=== PATIENT | male | born 1960 ===

== ENCOUNTER → 2016-10-20 | Outpatient (CLI) | payer BC ==
[~2016-10-20] MED LIST: AMOX1TAB12 PO; DOXY100T41 PO; LISI1TAB10 PO; LSNP10T PO; OMEP20TA PO; SULF-221 PO; SULF1TAB35 PO; THIA100T12 PO
[2016-10-20 17:02] LABS: BILIRUBIN,URINE Negative (Negative); CLARITY,URINE Clear; COLOR,URINE Yellow; GLUCOSE, URINE (UA) Negative (Negative); LEUKOCYTE ESTERASE ,URINE Negative (Negative); UROBILINOGEN,URINE 0.2 mg/dL (0.2-1.0)
[2016-10-20 17:14] LABS: RBC,URINE 0-2 /HPF; URINE CENTRIFUGED VOLUME 12 mL
== END ==
LOC: LAB 16:52
PROVIDERS: ATTEND Nurse Practitioner Family
DX: I10 Essential (primary) hypertension (principal)
CPT/HCPCS: 81003; 81015

== ENCOUNTER → 2016-10-20 | Outpatient (REF) | payer BC ==
[2016-10-20 11:45] LABS: MEAN CORPUSCULAR HEMOGLOBIN 27.7 PG (26.0-34.0); MEAN PLATELET VOLUME 10.3 FL (6.0-9.5); PLATELET COUNT 236 10^3uL (150-450); WHITE BLOOD COUNT 7.84 10^3uL (4.0-11.0)
[2016-10-20 12:11] LABS: ANION GAP 20.2 MEQ/L (3-15)
[2016-10-20 12:20] LABS: MEAN CORPUSCULAR HGB CONC 36.2 g/dL (31.0-37.0); MEAN CORPUSCULAR VOLUME 77 FL (80-100)
[2016-10-20 12:24] LABS: BAND NEUTROPHILS % 0 % (0-6); EOSINOPHILS % 1 % (0-4); LYMPHOCYTES # 0.9 #; MONOCYTES # 1.1 #; MONOCYTES % 16 % (3-11); RBC MORPH NORMAL (NORMAL); SEGMENTED NEUTROPHILS % 70 % (51-67); TOTAL CELLS COUNTED 100
== END ==
LOC: LAB 11:18
PROVIDERS: ATTEND Nurse Practitioner Family
DX: I10 Essential (primary) hypertension (principal); R53.83 Other fatigue
CPT/HCPCS: 80048; 84443; 85025

== ENCOUNTER → 2016-10-27 | Outpatient (REF) | payer BC ==
[2016-10-27 17:33] LABS: ANION GAP 17.7 MEQ/L (3-15)
== END ==
LOC: LAB 11:23
PROVIDERS: ATTEND Nurse Practitioner Family
DX: D64.9 Anemia, unspecified (principal); E87.1 Hypo-osmolality and hyponatremia
CPT/HCPCS: 80048; 82607; 82728; 82746; 83540; 83550

== ENCOUNTER → 2016-12-15 | Outpatient (CLI) | payer BC | LOC: RAD 07:31 | PROVIDERS: ATTEND Nurse Practitioner Family | DX: I10 Essential (primary) hypertension (principal) | CPT/HCPCS: 93976 ==

== ENCOUNTER → 2017-01-09 | Outpatient (REF) | payer BC ==
[2017-01-09 10:55] LABS: BASOPHILS % (AUTO) 1 % (0-2); EOSINOPHILS # (AUTO) 0.1 10^3uL; EOSINOPHILS % (AUTO) 2 % (0-4); LYMPHOCYTES # (AUTO) 1.6 X10^3; MEAN CORPUSCULAR HEMOGLOBIN 27.7 PG (26.0-34.0); MEAN CORPUSCULAR HGB CONC 33.2 g/dL (31.0-37.0); MEAN CORPUSCULAR VOLUME 83 FL (80-100); MEAN PLATELET VOLUME 11.2 FL (6.0-9.5); MONOCYTES # (AUTO) 0.9 X10^3; MONOCYTES % (AUTO) 14 % (3-11); NEUTROPHILS % (AUTO) 59 % (51-67); PLATELET COUNT 210 10^3uL (150-450); WHITE BLOOD COUNT 6.64 10^3uL (4.0-11.0)
[2017-01-09 11:24] LABS: ANION GAP 17.4 MEQ/L (3-15)
== END ==
LOC: LAB 10:13
PROVIDERS: ATTEND Nurse Practitioner Family
DX: D52.0 Dietary folate deficiency anemia (principal); I10 Essential (primary) hypertension; R73.03 Prediabetes
CPT/HCPCS: 80048; 82746; 83036; 85025